=== PATIENT | female | born 1990 | race Caucasian/White ===

== ENCOUNTER 2016-10-08 21:52 | Emergency (ER) | payer OTHER ==
[~2016-10-08] VITALS: Ht 149.9 cm; Wt 61.4 kg
[2016-10-08 22:59] LABS: APPEARANCE,URINE CLEAR (CLEAR); GLUCOSE, URINE (UA) NEGATIVE (NEGATIVE); KETONES,URINE NEGATIVE (NEGATIVE); LEUKOCYTE ESTERASE ,URINE NEGATIVE (NEGATIVE); OCCULT BLOOD,URINE NEGATIVE (NEGATIVE); PROTEIN,URINE NEGATIVE (NEGATIVE)
[2016-10-08 23:03] LABS: ADD UA MICROSCOPIC NO
[2016-10-09] MEDS ORDERED: ACETAMINOPHEN/CODEINE 300-30 MG TABLET PO ONE (01:00)
[2016-10-09] MEDS ORDERED: IBUPROFEN 600 MG TABLET PO ONE (01:00)
[2016-10-09 01:26] VITALS: BP 122/79
== END 2016-10-09 01:15 | disposition home or self-care (01) ==
LOC: EMS 21:53
DX: S93.501A Unspecified sprain of right great toe, initial encounter (principal); W21.02XA Struck by soccer ball, initial encounter; Y93.66 Activity, soccer; Y92.89 Other specified places as the place of occurrence of the external cause; Y99.8 Other external cause status
CPT/HCPCS: 99285